=== PATIENT | male | born 1985 | race Hispanic/Latino ===

== ENCOUNTER 2017-01-19 21:11 | Emergency (ER) | payer SELFPAY ==
[~2017-01-19 21:11] MED LIST: ISOVUE-370 76%-LOCM 1 ML ONE; Iopamidol 370 76% 50 ML VIAL FS ONE
[2017-01-19] MEDS ORDERED: Fentanyl 100 MCG/2 ML VIAL ONE (21:50)
[2017-01-19 21:57] LABS: Bilirubin Small (Negative); Blood, Urine Negative (Negative); Glucose, Urine (Dipstick) Negative (Negative); Ketone, Urine 40 mg/dL (Negative); Nitrite Negative (Negative); Protein, Urine (Dipstick) 100 mg/dL (Neg-Trace)
[2017-01-19 21:59] LABS: Bacteria/HPF None Seen HPF (None Seen); Hyaline Casts/LPF 4-6 HYALINE CAST LPF (0-3 Hyaline); RBC/HPF 0-3 HPF (0-3); Squamous Epithelial 0-3 HPF (0-3); WBC/HPF 0-3 HPF (0-3)
[2017-01-19] MEDS ORDERED: Ondansetron HCl/PF 4 MG/2 ML Vial ONE (23:15)
[2017-01-20] MEDS ORDERED: Ketorolac Tromethamine 30 MG/ML VIAL ONE (00:41)
--- NOTE | 2017-01-20 08:20 | CT ---
PRELIMINARY REPORT/[facility]/EMERGENCY AFTER HOURS PROCEDURE: EXAM: CT Abdomen and Pelvis With Intravenous Contrast EXAM DATE/TIME: Exam ordered 01/19/2017 11:52 PM CLINICAL HISTORY: 31 years old, male; Pain; Abdominal pain; Patient HX: Ems reports transfered from another facility e r for CT to R/O appy. Experiencing rlq abdominal pain x3 days. TECHNIQUE: Axial computed tomography images of the abdomen and pelvis with intravenous contrast. Coronal reformatted images were created and reviewed. CONTRAST: 90 mL of isovue 370 administered intravenously. COMPARISON: No relevant prior studies available. FINDINGS: Lower thorax: No acute findings. ABDOMEN: Liver: Unremarkable. No mass. Gallbladder and bile ducts: Unremarkable. No calcified stones. No ductal dilation. Pancreas: Unremarkable. No mass. No ductal dilation. Spleen: Splenomegaly. Adrenals: Unremarkable. No mass. Kidneys and ureters: Unremarkable. No solid mass. No hydronephrosis. Stomach and bowel: Unremarkable. No obstruction. No mucosal thickening. Appendix: Normal appendix. PELVIS: Bladder: Unremarkable. No mass. Reproductive: Unremarkable as visualized. ABDOMEN and PELVIS: Intraperitoneal space: Unremarkable. No free air. No significant fluid collection. Bones/joints: No acute fracture. No dislocation. Soft tissues: Unremarkable. Vasculature: Unremarkable. No abdominal aortic aneurysm. Lymph nodes: Unremarkable. No enlarged lymph nodes. IMPRESSION: Splenomegaly. Thank you for allowing us to participate in the care of your patient. Dictated and Authenticated by: Vladimir Gomes MD 01/20/2017 12:16 AM Central Time ([place] \T\ [place]) FINAL REPORT: CT OF THE ABDOMEN AND PELVIS: Date: 01-19-17 Comparison: None. History: Right lower quadrant pain for three days. Assess for appendicitis. FINDINGS: I agree with the preliminary [facility] report. Imaged lung bases were unremarkable. No free intraperitone al air or fluid noted. The liver, gallbladder, pancreas, and adrenal glands are unremarkable. Nonspecific splenomegaly note d. The spleen measuring up to 16 cm in AP dimension. No evidence for nephrolithiasis or hydronephros is on either side. No evidence for bowel inflammatory change or bowel obstruction. The appendix is unremarkable. Vascular structures appear unremarkable. No evidence for lymphadenopathy. There is a transitional vertebral body at the lumbosacral junction on the left. No acute osseous abn ormality. IMPRESSION: 1. Splenomegaly. No evidence for bowel inflammatory change, bowel obstruction, free intraperitoneal air, of appendicitis. Code QA POS: [facility]
== END 2017-01-20 00:56 | disposition home or self-care (01) ==
LOC: ERS 21:11
DX: R10.11 Right upper quadrant pain (principal); R10.31 Right lower quadrant pain; E66.01 Morbid (severe) obesity due to excess calories; E03.9 Hypothyroidism, unspecified; Z79.899 Other long term (current) drug therapy
CPT/HCPCS: 74177; 81003; 81015; 96374; 96375; J1170; J1885; J2405; J3010